=== PATIENT | male | born 1985 | race Caucasian/White ===

== ENCOUNTER 2018-03-20 12:28 | Outpatient (REF) | payer OTHER, SELFPAY ==
[2018-03-22 12:51] LABS: Acrosom Defect 24.5 %; Appearance Normal; Container Type 50 mL Conical; Double Forms 2.5 %; Germ Cells/mL 0.77 x10(6) (<4.00); Grade 3.5 (>=2.5); Head Size Abnormal 5.5 %; Motile/Ejaculate 21.6 x10(6) (>=9.0); Motile/mL 4.8 x10(6) (>=6.0); Motility 37 % (>=40); Semen Volume 4.5 mL (>=1.5); Sperm/mL 12.9 x10(6) (>=15.0); Strict Morph NL 0.5 % (>=4.0); Study Type Semen; WBC/mL 0.06 x10(6) (<1.00)
== END 2018-03-20 12:48 ==
LOC: LBN 12:28
PROVIDERS: PCP Family Medicine; Visit Provider Obstetrics & Gynecology Gynecology
DX: Z31.41 Encounter for fertility testing (principal); Z31.69 Encounter for other general counseling and advice on procreation
CPT/HCPCS: 89240; 89310

== ENCOUNTER 2018-05-24 18:26 | Emergency (ER) | payer OTHER, SELFPAY ==
[2018-05-24 18:33] VITALS: BP 154/89; PULSE 76; RESP 12; TEMP 36.8; O2SAT 99
[2018-05-24 18:50] VITALS: BP 154/89; PULSE 76; RESP 12; TEMP 36.8; O2SAT 99
--- NOTE | 2018-05-24 19:56 | ED.GENADUL_ITS ---
Discharge Plan Disposition Patient Disposition: HOME Condition: Stable Discharge Details Chief Complaint: Laceration Clinical Impression: Eyelid laceration Primary Care Provider: Amari Benton ED Provider: Zachary Duran Home Meds and New Rx's Prescriptions: No Action No Known Home Meds RF: 0 Discharge Instructions Instructions: Facial Laceration (ED) Additional Instructions: 1. Drink plenty of fluids. 2. Continue all medications as prescribed. 3. Acetaminophen 1000mg every 4 hours (up to 5 time a day) and/or ibuprofen 600mg every 6 hours as needed for fever or pain. 4. Bacitracin to wound edges twice a day. Return to the Emergency Department (ED) if your condition worsens, does not improve as expected, or for ANY other concerns. Specifically, return if you have new or uncontrolled pain, worsening fever, difficulty breathing, vomiting, or are unable to drink fluids. Medical Decision Making Presents for evaluation of single laceration sustained to his left eyelid. Had been inadvertently scratched by his dog's claw. Denies sensation of globe injury, visual change, or foreign body sensation. Has no other injury. Exam significant for a superficial 3 cm transverse laceration in the mid eyelid. Wound edges are well approximated despite mechanical efforts at opening up the wound. No active bleeding. Discussed low likelihood that wound repair would benefit cosmesis. Discharged home with a plan for bacitracin to the wound and outpatient follow-up as needed. Pt evaluated immediately prior to discharge with improved symptoms, normal vital signs, and tolerating PO. The patient feels appropriate for discharge home. Discussed clinical/diagnostic findings. Discharged with a clear plan for outpat ient follow up. Given usual and customary return instructions prior to discharge. HPI 32-year-old with an unremarkable past medical history presents with a new laceration to his left eyelid. And apparently scratched along the upper eyelid by his dog and sustained a laceration. Denies a sensation of significant globe injury with no change in vision, foreign body sensation, or any overt globe injury on inspection. Laceration had minimal bleeding which has been controlled with direct pressure. Denies other injury. Thinks that his tetanus is up-to-date. General Date/Time Provider Initiated Documentation: 05/24/18 18:45 . Related Data Home Medications Medication Instructions Recorded Confirmed Unknown [No Known Home Meds] 12/12/12 05/24/18 Allergies Allergy/AdvReac Type Severity Reaction Status Date / Time No Known Allergies Allergy Unverified 05/24/18 18:36 General Stated Complaint: Laceration CHRISTOPHER: 4 Review of Systems Review of Systems All systems reviewed & are unremarkable except as noted in HPI and below Eyes Denies blurry vision, Denies change in vision, Denies eye pain and Denies photophobia Comments: No foreign body sensation. Single transverse laceration on the upper eyelid with no active bleeding PFS Social History Smoking/Tobacco Use Status: Former Tobacco Use Drug use: Rarely Exam Narrative Exam Narrative: Nursing note and vital signs have been reviewed and noted. GENERAL: alert, active, no acute distress, well -hydrated, well-nourished HEENT: atraumatic/normocephalic, PERRLA, EOMI, conjunctiva clear, upper eyelid with a 3 cm transverse laceration into the dermis. No active bleeding. Laceration edges remain well approximated with mechanical effort at opening wound. external ears/canals normal, nasal mucosa normal NECK: supple, full range of motion CARDIOVASCULAR: nl pulses, no edema PULMONARY: nl effort, no audible wheezing or stridor ABDOMEN: non-distended EXTREMITY: normal muscle tone, all joints with FROM, no deformity NUERO: normal mentation, moving all extremities, normal stance and gait, PSYCH: alert and oriented SKIN: no new rashes or lesions Course Vital Signs Temperature 98.2 F 05/24/18 18:33 Pulse 76 05/24/18 18:33 Respiratory Rate 12 05/24/18 18:33 Blood Pressure 154/89 H 05/24/18 18:33 Pulse Oximetry 99 05/24/18 18:33 Temperature 98.2 F 05/24/18 18:50 Temperature Source Temporal Artery Scan 05/24/18 18:33 Pulse 76 05/24/18 18:50 Respiratory Rate 12 05/24/18 18:50 Respiratory Effort Non-Labored 05/24/18 18:34 Blood Pressure 154/89 H 05/24/18 18:50 Blood Pressure Position Sitting 05/24/18 18:33 Pulse Oximetry 99 05/24/18 18:50 Oxygen Delivery Method Room Air 05/24/18 18:33 Oxygen Flow Rate 0 05/24/18 18:33 Pain Level 0 05/24/18 18:50
== END 2018-05-24 18:57 | disposition home or self-care (01) ==
PROVIDERS: Emergency Provider Emergency Medicine; PCP Family Medicine
DX: S01.112A Laceration without foreign body of left eyelid and periocular area, initial encounter (principal); W54.8XXA Other contact with dog, initial encounter
CPT/HCPCS: 99282

== ENCOUNTER 2019-08-13 17:01 | Outpatient (REF) | payer OTHER, SELFPAY ==
[2019-08-13 16:24] LABS: Anion Gap 9.3 mmol/L (3-11); BUN 13 mg/dL (7-18); CO2 26.7 mmol/L (21.0-32.0); CREATININE 0.99 mg/dL (0.70-1.30); Calcium 8.8 mg/dL (8.5-10.1); Calculated LDL 113 mg/dL (<100); Chloride 106 mmol/L (98-107); Cholesterol 169 mg/dL (<200); Glucose 106 mg/dL (74-106); HDL Cholesterol 37 mg/dL (40-60); Potassium 4.4 mmol/L (3.5-5.1); Sodium 142 mmol/L (136-145); Triglyceride 95 mg/dL (<150)
== END 2019-08-13 17:21 ==
LOC: NCHCN 17:01
PROVIDERS: PCP Family Medicine; Visit Provider Physician Assistant
DX: Z00.00 Encounter for general adult medical examination without abnormal findings (principal); Z13.220 Encounter for screening for lipoid disorders; Z13.228 Encounter for screening for other metabolic disorders
CPT/HCPCS: 80048; 80061

== ENCOUNTER 2020-03-29 19:40 | Outpatient (REF) | payer OTHER, SELFPAY ==
[2020-04-01 14:35] LABS: COVID-19 RT-PCR UVMMC Result Negative (Negative)
== END 2020-03-29 20:00 ==
LOC: NCHCN 19:40
PROVIDERS: PCP Family Medicine; Visit Provider Nurse Practitioner Family
DX: J06.9 Acute upper respiratory infection, unspecified (principal)
CPT/HCPCS: U0003

== ENCOUNTER 2020-06-27 19:42 | Outpatient (REF) | payer OTHER, SELFPAY | END 2020-06-27 19:43 | disposition home or self-care (01) | LOC: NCHCN 19:42 | PROVIDERS: PCP Family Medicine; Visit Provider Physician Assistant Medical | DX: J02.9 Acute pharyngitis, unspecified (principal) | CPT/HCPCS: 87070 ==

== ENCOUNTER 2021-10-21 13:33 | Outpatient (REF) | payer BC, SELFPAY ==
[2021-10-22 10:37] LABS: Lyme Ab w Rflx to Lyme Confirm Negative (Negative)
[2021-10-23 15:22] LABS: COVID-19 RT-PCR UVMMC Result Negative (Negative)
[2021-10-23 20:24] LABS: Anaplasma phagocytophilum Negative (Negative); B. miyamotoi PCR Negative (Negative); Babesia divergens/MO-1 Negative (Negative); Babesia duncani Negative (Negative); Babesia microti Negative (Negative); Ehrlichia chaffeensis Negative (Negative); Ehrlichia ewingii/canis Negative (Negative); Ehrlichia muris eauclairensis Negative (Negative)
== END 2021-10-21 13:34 | disposition home or self-care (01) ==
LOC: LBN 13:33
PROVIDERS: PCP Family Medicine; Visit Provider Physician Assistant Medical
DX: Z20.822 Contact with and (suspected) exposure to COVID-19 (principal); J11.1 Influenza due to unidentified influenza virus with other respiratory manifestations; B97.89 Other viral agents as the cause of diseases classified elsewhere
CPT/HCPCS: 87798; U0003; 86618

== ENCOUNTER 2021-11-04 13:09 | Outpatient (REF) | payer BC, SELFPAY ==
--- NOTE | 2021-11-04 11:50 | SKI_PTH ---
PATIENT: Redd Viramontes LOC: [facility] U#:[id number] AGE/SX: 35/M ROOM: RE11/04/[address]: Spike Ayala : 1985 BED: DIS: 11/04/2021 SPEC #: [id number] RECD: 11/04/21 17:35 STATUS: SARINA REYocasta #: [id number] AVANI: 11/04/21 11:[address]: Spike Ayala DEPT: Surgical Specimen RECD BY: Joi Barksdale ENTERED: 11/04/21 17:35 SP TYPE: MOHAN GRUBBS DR: Amari Benton Tissues: 1 - SKIN BIOPSY(SHAVE/PUNCH) Procedures: SKIN LEVEL 4 SPECIAL STAIN 1 Comments: [id number]
--- OUTSIDE RECORDS SUMMARY | 2021-11-04 13:11 | XMS_ITS | Encounter Summary ---
:1985 Demographics Home Phone Preferred Language Unknown Marital Status Unknown Gnosticist Affiliation Unknown Race Unknown Ethnic Group Unknown Author Organization [facility] Address [address] [place] [address] Care Team Providers Name Role Phone Unavailable Primary Care Provider Unavailable Encounter Details Date Type Department Care Team Description 10/22/2021 Lab Requisition [facility] Outr Resulting Lab, Pathology & Laboratory Provider [facility] [address] [place] [address] Social History Tobacco Use Types Packs/Day Years Used Date Never Assessed Sex Assigned at Date Recorded Not on file documented as of this encounter Plan of Treatment Not on filedocumented as of this encounter Procedures Procedure Name Priority Date/Time Associated Diagnosis Comme nts COVID-19 TEST [facility] Today 10/21/2021 11:40 LAB PCR EDT COVID-19 TESTING Routine 10/21/2021 11:40 Results for this EDT procedure are i n the results section. documented in this encounter Results COVID-19 TEST [facility] LAB PCR (10/21/2021 11:40 EDT) Specimen Swab Performing Organization Address City/State/ZIP Code Phon e Number [facility] [address] [place] [address] SERVICES COVID-19 TESTING (10/21/2021 11:40 EDT) COVID-19 rt-PCR Negative Negative [facility] Result Comment: [facility] This test has not been FDA c leared or approved. This test has been authorized by FDA under an EUA for use by authorized laboratories. This test has been authorized only for detection of nucleic acid fro SERVICES m 2019-nCoV, not for any oth er viruses or pathogens. This test is only authorized for the duration of the declaration that circumstances exist justifying the authorization of emergency use of in vitro d iagnostic tests for detectio n and/or diagnosis of 2019-nCoV under section 564(b)(1) of Act, 21 U.S.C ?? 360bbb-3(b) (1), unless the authorization is terminated or revoked sooner. Negative results do not prec lude 2019-nCoV infection and should not be used as the sole basis for treatment or other patient management decisions. Negative results must be combined with clinical observa tions, patient history, and epidemiological informatio n. Testing was performed using the marybeth SARS-CoV-2 assay ([employer] on the Marybeth 6800 System Performing Lab [place] [address] [facility] Lab [facility] SERVICES Specimen Swab Performing Organization Address City/State/ZIP Code Phon e Number [facility] [address] [place] [phone] SERVICES documented in this encounter Visit Diagnoses Not on filedocumented in this encounter
--- OUTSIDE RECORDS SUMMARY | 2021-11-04 13:11 | XMS_ITS | Encounter Summary ---
:1985 Demographics Home Phone Preferred Language Unknown Marital Status Unknown Hinduism Affiliation Unknown Race Unknown Ethnic Group Unknown Author Organization [facility] Address [address] [place] [address] Care Team Providers Name Role Phone Unavailable Primary Care Provider Unavailable Encounter Details Date Type Department Care Team Description 10/21/2021 Lab Requisition [facility] Outr Resulting Lab, Pathology & Laboratory Provider [facility] [address] [place] [address] Social History Tobacco Use Types Packs/Day Years Used Date Never Assessed Sex Assigned at Date Recorded Not on file documented as of this encounter Plan of Treatment Not on filedocumented as of this encounter Procedures Procedure Name Priority Date/Time Associated Diagnosis Comme nts LYME AB Routine 10/21/2021 11:40 EDT Results for this procedure are i n the results section . documented in this encounter Results LYME AB (10/21/2021 11:40 EDT) Pathologist Sig nature Lyme Ab Negative Negative [facility] Specimen Blood - Venous blood (substance) Performing Organization Address City/State/ZIP Code Phon e Number [facility] [address] [place] [address] SERVICES documented in this encounter Visit Diagnoses Not on filedocumented in this encounter
--- OUTSIDE RECORDS SUMMARY | 2021-11-04 13:11 | XMS_ITS | Encounter Summary ---
:1985 Demographics Home Phone Preferred Language Unknown Marital Status Unknown Anglican Affiliation Unknown Race Unknown Ethnic Group Unknown Author Organization Address [address] [place] [address] Care Team Providers Name Role Phone Unavailable Primary Care Provider Unavailable Encounter Details Date Type Department Care Team Description 03/31/2020 Lab Requisition [facility] Outr Resulting Lab, Pathology & Laboratory Provider [facility] [address] [place] [address] Social History Tobacco Use Types Packs/Day Years Used Date Never Assessed Sex Assigned at Date Recorded Not on file documented as of this encounter Plan of Treatment Not on filedocumented as of this encounter Procedures Procedure Name Priority Date/Time Associated Diagnosis Comme nts COVID-19 TEST [facility] Today 03/29/2020 10:31 LAB PCR EST COVID-19 TESTING Routine 03/29/2020 10:31 Results for this EST procedure are i n the results section. documented in this encounter Results COVID-19 TEST [facility] LAB PCR (03/29/2020 10:31 EST) Specimen Swab - Entire nasopharynx (body structur e) Performing Organization Address City/State/ZIP Code Phon e Number [facility] [address] [place] [address] SERVICES COVID-19 TESTING (03/29/2020 10:31 EST) COVID-19 rt-PCR Negative Negative [facility] Result Comment: [facility] Negative results do not prec lude 2019-nCoV infection and should not be used as the sole basis for treatment or other patient management decisions. Negative results must be combined with clinical observa SERVICES tions, patient history, and epidemiological informatio n. This test was developed and its performance characteristics determined by [facility]. It has not been cleared or approved by the US Food and Drug Administration. FDA does not require this test to go through premarket FDA review. This t est is used for clinical purposes. It should not be regarded as investigational or for research. This laboratory is certified under the Clinical Laboratory Improvement Amendm ents (CLIA) as qualified to perform high complexity clinical laboratory testing. This test is based on the CD C COVID-19 Emergency Use Authorization (EUA) assay, with minor modification as defined by the FDA Performed on the [employer] 7 Flex RT-PCR System. Performing Lab [facility] Lab [facility] Specimen Swab Performing Organization Address City/State/ZIP Code Phon e Number [facility] [address] [place] [address] SERVICES documented in this encounter Visit Diagnoses Not on filedocumented in this encounter
--- OUTSIDE RECORDS SUMMARY | 2021-11-04 13:11 | XMS_ITS | Clinical Summary ---
:1985 Demographics Home Phone Preferred Language Unknown Marital Status Unknown Protestant Affiliation Unknown Race Unknown Ethnic Group Unknown Author Organization [facility] Address [address] [place] [address] Care Team Providers Name Role Phone Unavailable Primary Care Provider Unavailable Encounters Date Type Specialty Care Team Description 10/22/2021 Lab Requisition [facility] Outr Resulting Lab , Provider 10/21/2021 Lab Requisition Clinical Laboratory Outr Resulting Lab , Provider from Last 3 Months Social History Tobacco Use Types Packs/Day Years Used Date Never Assessed Sex Assigned at Date Recorded Not on file Plan of Treatment Not on file Procedures Procedure Name Priority Date/Time Associated Diagnosis Comme nts LYME AB Routine 10/21/2021 11:40 Results for this EDT procedure are i n the results section. COVID-19 TEST [facility] Today 10/21/2021 11:40 LAB PCR EDT COVID-19 TESTING Routine 10/21/2021 11:40 Results for this EDT procedure are i n the results section. from Last 3 Months Results COVID-19 TEST [facility] LAB PCR (10/21/2021 11:40 EDT) Specimen Swab Performing Organization Address City/State/ZIP Code Phon e Number [facility] [address] [place] [address] SERVICES COVID-19 TESTING (10/21/2021 11:40 EDT) COVID-19 rt-PCR Negative Negative [facility] Result Comment: [facility] This test has not been FDA [...] was performed using the marybeth SARS-CoV-2 assay ([employer] on the Marybeth 6800 System Performing Lab [address] [facility] Lab [facility] SERVICES Specimen Swab Performing Organization Address City/[facility]/ZIP Code Phon e Number [facility] [address] [place] [address] SERVICES LYME AB (10/21/2021 11:40 EDT) Pathologist Sig nature Lyme Ab Negative Negative [facility] Specimen Blood - Venous blood (substance) Performing Organization Address City/[facility] Phon e Number [facility] [address] [place] [address] SERVICES from Last 3 Months
[2021-11-04 18:09] LABS: Abs Immature Grans 0.37 10^3/uL (0.0-0.06); Absolute Basophil Count 0.06 10^3/uL (0.0-0.2); Absolute Eosinophil Count 0.03 10^3/uL (0.0-0.7); Absolute Monocyte Count 0.39 10^3/uL (0.1-0.8); Basophils % 0.5; Eosinophils % 0.3; HCT 45.4 % (40.0-50.0); HGB 14.9 g/dL (13.5-17.5); Immature Grans % 3.2; Lymphocytes % 14.7; MCH 28.8 pg (27.0-33.0); MCHC 32.8 % (32.0-36.0); MCV 88 fL (80-95); MPV 10.3 fL (8.0-11.0); Monocytes % 3.4; Neutrophils % 77.9; Platelet Count 224 10^3/uL (130-400); RBC 5.18 10^6/uL (4.36-5.78); RDW 13.1 % (11.8-14.1); RDW-SD 42.1 fL; WBC 11.55 10^3/uL (4.4-10.8)
[2021-11-04 18:18] LABS: ALT 38 U/L (16-63); AST 16 U/L (15-37); Albumin 4.1 g/dL (3.4-5.0); Alkaline Phosphatase 92 U/L (46-116); Anion Gap 7.1 mmol/L (3-11); BUN 13 mg/dL (7-18); Bilirubin, Total 0.2 mg/dL (0.2-1.0); C-Reactive Protein 0.06 mg/dL (0.0-0.3); CO2 26.9 mmol/L (21.0-32.0); CREATININE 1.1 mg/dL (0.70-1.30); Calcium 9.4 mg/dL (8.5-10.1); Chloride 100 mmol/L (98-107); Estimated GFR 89.22 (mL/min/1.73m2); Glucose 123 mg/dL (74-106); Potassium 4.9 mmol/L (3.5-5.1); Sodium 134 mmol/L (136-145); Total Protein 7.8 g/dL (6.4-8.2)
[2021-11-06 10:22] LABS: Syphilis Serology (RPR) Negative (Negative)
== END 2021-11-04 13:10 | disposition home or self-care (01) ==
LOC: NCHCN 13:09
PROVIDERS: PCP Family Medicine; Visit Provider Family Medicine
DX: L40.9 Psoriasis, unspecified (principal)
CPT/HCPCS: 80053; 85025; 86140; 86592; 88305; 88312

== ENCOUNTER 2024-03-17 12:56 | Emergency (ER) | payer BC, SELFPAY ==
[2024-03-17] VITALS (32 sets, daily range): BP systolic 116–140; BP diastolic 73–94; PULSE 76–155; RESP 11–30; TEMP 36.4; O2SAT 93–100
--- NOTE | 2024-03-17 12:45 | RT.EKG_ITS ---
APPROVED REPORT Exam: Resting ECG Reason for Exam: Tachy Patient Location: E HR:127 bpm ECG Measurements Heart Rate 127 AXIS MT 158 P 68 QRSd 82 QRS 62 QT 291 T 240 QTc 424 Conclusion Sinus tachycardia...rate> 99 Probable left atrial enlargement...P >50mS, <-0.10mV V1 Nonspecific repol abnormality, diffuse leads...ST dep, T flat/neg, ant/lat/inf Borderline ST elevation, anterior leads...ST >0.15mV in V1-V4
--- NOTE | 2024-03-17 12:55 | RT.EKG_ITS ---
APPROVED REPORT Exam: Resting ECG Reason for Exam: tachy Patient Location: E HR:79 bpm ECG Measurements Heart Rate 79 AXIS NJ 126 P 55 QRSd 84 QRS 61 QT 425 T 66 QTc 464 Conclusion Sinus rhythm...normal P axis, V-rate 60- 99 Atrial premature complexes...SV complexes w/ short R-R intvls Nonspecific ST depression...ST <-0.10mV, any 2 leads
[2024-03-17 13:45] LABS: Abs Immature Grans 0.06 10^3/uL (0.0-0.06); Absolute Basophil Count 0.05 10^3/uL (0.0-0.2); Absolute Eosinophil Count 0.14 10^3/uL (0.0-0.7); Absolute Lymphocyte Count 2.64 10^3/uL (1.2-3.4); Absolute Monocyte Count 0.59 10^3/uL (0.1-0.8); Absolute Neutrophil Count 5.49 10^3/uL (1.2-6.7); Basophils % 0.6 %; Eosinophils % 1.6 %; HCT 42.4 % (40.0-50.0); HGB 14.6 g/dL (13.5-17.5); Immature Grans % 0.7 %; Lymphocytes % 29.4 %; MCHC 34.4 % (32.0-36.0); MCV 84 fL (80-95); MPV 9.4 fL (8.0-11.0); Monocytes % 6.6 %; Neutrophils % 61.1 %; Platelet Count 227 10^3/uL (130-400); RBC 5.03 10^6/uL (4.36-5.78); RDW 12.4 % (11.8-14.1); RDW-SD 37.7 fL; WBC 8.97 10^3/uL (4.4-10.8)
--- NOTE | 2024-03-17 13:47 | ED.GENADUL_ITS ---
Discharge Plan Disposition Patient Disposition: Home Condition: Stable Discharge Details Clinical Impression: Rapid heart rate Primary Care Provider: Amari Benton ED Provider: Amari Jose Home Meds and New Rx's Prescriptions: Continued paroxetine HCl 10 mg tablet 10 mg PO DAILY Discharge Instructions Instructions: Hypomagnesemia Additional Instructions: Your blood work today showed that your magnesium is mildly low otherwise no significant findings. Follow-up with your primary care provider this week. He did have a brief episode of SVT which is not a life-threatening arrhythmia. If you notice that you are heart rate is elevated or you have chest pain or palpitations return to the emergency department for reevaluation. HPI General Mode of arrival: ambulatory . Date/Time Provider Initiated Documentation: 03/17/24 12:57 . Limitations to Documentation: no limitations . Information obtained by: patient . History of Present Illness 38 year old M pr esents to the emergency department with the chief complaint of palpitations, described as moderate, Patient started experiencing this hour(s) (1) and it has been constant. No relieving factors improve symptom(s), No exacerbating factors reported . Patient notes no other symptoms.. Patient did receive the following treatments prior to arrival, none Related Data Home Medications ?Medication ?Instructions ?Recorded ?Confirmed paroxetine HCl 10 mg tablet 10 mg PO DAILY 03/17/24 03/17/24 Allergies Allergy/AdvReac Type Severity Reaction Status Date / Time No Known Allergies Allergy Unverified 03/17/24 13:10 General Stated Complaint: Chest Pain CHRISTOPHER: 2 Review of Systems All systems reviewed & are unremarkable except as noted in HPI and below Constitutional Constitutional: Denies chills, Denies fever(s) and Denies weakness Eyes Eyes: Denies loss of vision ENT Ears, Nose, Mouth, and Throat: Denies change in voice Cardiovascular Cardiovascular: Denies chest pain, Denies dyspnea and Reports other (palpitations) Respiratory Respiratory: Denies cough and Denies dyspnea Gastrointestinal Gastrointestinal: Denies abdominal pain, Denies nausea and Denies vomiting Musculoskeletal Musculoskeletal: Denies joint swelling Neurologic Neurologic: Denies loss of vision and Denies weakness Psychiatric Psychiatric: Denies depression Exam Const General: no acute distress Orientation: alert HENMT Head: normal to inspection Ears: external ears normal General nose exam: external nose normal Mouth: moist mucous membranes Eyes General: appearance normal, both eyes and all related structures Neck Neck: normal visual inspection Resp Effort & Inspection: normal respiratory effort and able to speak in complete sentences Auscultation: clear to auscultation bilaterally Cardio Jugular venous pressure: no JVD Rate: regular rate Heart Sounds: no murmurs Skin General skin exam: no rashes or lesions noted Neuro General: patient alert and patient oriented x3 Extrem General: normal to inspection Psych Mental Status: mental status grossly normal Course Vital Signs Vital signs: Vital Signs Temperature 36.4 C L 03/17/24 13:00 Pulse 155 H 03/17/24 13:00 Respiratory Rate 18 03/17/24 13:00 Blood Pressure 135/80 03/17/24 13:00 Pulse Oximetry 100 03/17/24 13:00 Temperature 36.4 C L 03/17/24 13:00 Temperature Source Oral 03/17/24 13:00 Pulse 117 H 03/17/24 13:15 Pulse 111 H 03/17/24 13:20 Respiratory Rate 16 03/17/24 13:20 Respiratory Effort Normal, Non-Labored 03/17/24 13:19 Respiratory Depth Normal 03/17/24 13:19 Respiratory Pattern Normal 03/17/24 13:19 Blood Pressure 135/80 03/17/24 13:15 Blood Pressure Mean 95 03/17/24 13:15 Blood Pressure Position Supine 03/17/24 13:00 Pulse Oximetry 99 03/17/24 13:20 Oxygen Delivery Method Room Air 03/17/24 13:00 Oxygen Flow Rate 0 03/17/24 13:00 Pain Level 5 03/17/24 13:00 Comment headache/dry mouth/goose flesh and slight left shoulder pain. 03/17/24 13:00 Medical Decision Making 38-year-old male comes in with 1 to 2 hours of feeling like his heart rate is elevated. On arrival nursing noted his heart rate was in the 150s to 160s on my exam and is now in the low 100s in sinus. He denies any chest pain or chest pressure. No fevers. He is oriented x 4 on arrival. He does note that he took an extra dose of paroxetine last night, does not he feels anxious today. He could have been in SVT though I was unable to see this rhythm myself, also for like he is suffering from anxiety. Will check CBC, CMP and troponins and reassess. Will give him a dose of lorazepam as well. He has no evidence of DVT on exam, no hypoxia or pleuritic chest pain so doubt entities such as PE. No tearing back pain and equal peripheral pulses so doubt dissection Patient stable in sinus rhythm in the 90s. Delta troponins negative. Lab work unremarkable other than magnesium mildly low. He is stable for discharge advised follow-up with his PCP and return precautions given. Given the one-time occurrence of SVT do not feel medication at this time is indicated. Differential Diagnosis Differential Diagnosis: SVT, electrolyte abnormality, serotonin syndrome Quality:SDOH Health Related Social Needs: No Data to Display [facility] All Active Problems (Updated 03/17/24 @ 15:47 by Amari Jose MD) Rapid heart rate (Acute) Social History Smoking/Tobacco Use Status: Former Tobacco Use Smoking risk assessment performed?: Yes Alcohol Intake: current Alcohol Intake frequency: holidays/special occasions only Drug use: Rarely Substance use type: marijuana Details: home grown Housing: house Do you feel safe at home: Yes Do you feel safe in your relationship?: Yes
[2024-03-17 14:09] LABS: ALT 26 U/L (16-63); AST 19 U/L (15-37); Albumin 4.1 g/dL (3.4-5.0); Alkaline Phosphatase 80 U/L (46-116); Anion Gap 7.8 mmol/L (3-11); BUN 15 mg/dL (7-18); Bilirubin, Total 0.46 mg/dL (0.2-1.0); CO2 26.2 mmol/L (21.0-32.0); CREATININE 1.1 mg/dL (0.70-1.30); Calcium 8.8 mg/dL (8.5-10.1); Chloride 105 mmol/L (98-107); Estimated GFR 87.57 (mL/min/1.73m2); Glucose 178 mg/dL (74-106); Lipase 29 U/L (<78); Magnesium 1.5 mg/dL (1.8-2.4); Potassium 3.8 mmol/L (3.5-5.1); Sodium 139 mmol/L (136-145); Total Protein 7.5 g/dL (6.4-8.2)
[2024-03-17 14:14] LABS: Troponin I < 4 ng/L (<or=76)
--- OUTSIDE RECORDS SUMMARY | 2024-03-17 14:17 | XMS_ITS | Encounter Summary ---
Author Organization [facility] Address [address] [place] [address] Care Team Providers Care Permit Technician Name Role Phone Amari Benton MD Primary Care Provider [phone] Encounter Details Date Type Department Care Team (Late st Contact Info) Description 11/05/2021 Lab Requisition [facility] Pathology & Laboratory Medicine - [facility] [address] [place] [address] Outr Resulting Lab, Provider Social History Tobacco Use Types Packs/Day Years Used Date Smoking Tobacco: Never Assessed Interpersonal Safety Answer Date Record ed Physically Hurt Never 03/31/2020 Verbally Threaten Not on file 03/31/2020 Sex and Gender Information Value Date Recorded Sex Assigned at Not on file Legal Sex Male 10:08 EST Gender Identity Not on file Sexual Orientation Not on file documented as of this encounter Plan of Treatment Not on file documented as of this encounter Procedures Procedure Name Priority Date/Time Associated Diagnosis Comments SYPHILIS SEROLOGY Routine 11/04/2021 11: 40 EDT documented in this encounter Results * SYPHILIS SEROLOGY (11/04/2021 11:40 EDT) Syphilis Serology Negative Negative 11/06/2021 10:18 EDT [facility] Blood VENOUS BLOOD / Unknown 11/04/2021 11:40 EDT 11/05/2021 17:22 EDT us Provider Outr Resulting Lab IMMUNOLOGY AND SEROL OGY ORDERABLES Final Result [facility] [address] [place] [address] documented in this encounter Visit Diagnoses Not on filedocumented in this encounter Care Teams Permit Technician Relationship Specialty Start Date End Date Benton, Amari L, MD [address] [place] [id number] PCP - General 10/05/21 documented as of this encounter
--- OUTSIDE RECORDS SUMMARY | 2024-03-17 14:17 | XMS_ITS | Encounter Summary ---
Author Organization [facility] Address [address] [place] [address] Care Team Providers Care Senior Mainframe Developer Name Role Phone Amari Benton MD Primary Care Provider [phone] Encounter Details Date Type Department Care Team (Late st Contact Info) Description 03/31/2020 Lab Requisition [facility] Pathology & Laboratory Medicine - [facility] [address] [place] [address] Outr Resulting Lab, Provider Social History Tobacco [...] Procedure Name Priority Date/Time Associated Diagnosis Comments ZZCOVID-19 TEST [facility] PCR Today 03/29/2020 10:31 EST COVID-19 TESTING Routine 03/29/2020 10:3 1 EST documented in this encounter Results * COVID-19 TEST [facility] PCR (03/29/2020 10:31 EST) Swab ENTIRE NASOPHARYNX / Unknown 03/29/2020 10:31 EST 03/31/2020 16:40 EST us Provider Outr Resulting Lab MICROBIOLOGY - GENER AL ORDERABLES Final Result [facility] [address] [place] [address] * COVID-19 TESTING (03/29/2020 10:31 EST) COVID-19 rt-PCR Result Negative Negative 04/01/2020 14:30 EST [facility] Comment: Negative results do not preclude 2019-nCoV infection and should not be used as the sole basis for treatment or other patient management decisions. Negative results must be combined with clinical observations, patient history, and epidemiological information. This test was developed and its performance characteristics determined by [facility]. It has not been cleared or approved by the US Food and Drug Administration. FDA does not require this test to go through premarket FDA review. This test is used for clinical purposes. It should not be regarded as investigational or for research. This laboratory is certified under the Clinical Laboratory Improvement Amendments (CLIA) as qualified to perform high complexity clinical laboratory testing. This test is based on the [facility] COVID-19 Emergency Use Authorization (EUA) assay, with minor modification as defined by the FDA Performed on the [facility] Flex RT-PCR System. Performing Lab BHAVIN [facility] Lab 04/01/2020 14:30 EST [facility] Swab 03/29/2020 10:3 1 EST 03/31/2020 16:40 EST us Provider Outr Resulting Lab MICROBIOLOGY - GENER AL ORDERABLES Final Result [facility] [address] [place] [address] documented in this encounter Visit Diagnoses Not on filedocumented in this encounter Care Teams Senior Mainframe Developer Relationship Specialty Start Date End Date Amari Benton MD [address] [address] PCP - General 10/05/21 documented as of this encounter
--- OUTSIDE RECORDS SUMMARY | 2024-03-17 14:17 | XMS_ITS | Encounter Summary ---
Author Organization [facility] Address [facility] [place] [address] Care Team Providers Care Nylon Hot Wire Cutter Name Role Phone Krishna Ramos MD Primary Care Provider [phone] Encounter Details Date Type Department Care Team (Late st Contact Info) Description 05/15/2010 10:45 AM EST [place] [id number] Abbey Irby PA [facility] [place] [address] Discharge Disposition: Home Social History Tobacco Use Types Packs/Day Years Used Date Smoking Tobacco: Never Assessed Sex and Gender Information Value Date Recorded Sex Assigned at Not on file Gender Identity Not on file Sexual Orientation Not on file documented as of this encounter Plan of Treatment Not on file documented as of this encounter Procedures Procedure Name Priority Date/Time Associated Diagnosis Comments URINE CULTURE Routine 05/15/2010 1:55 PM EST documented in this encounter Results * URINE CULTURE (05/15/2010 1:55 PM EST) Urine Culture ? Patient Name: MARGARET VIRAMONTES ? Ordered By: ABBEY IRBY ? MR#: [id number] ?LOC: ??5B ? /Sex: ?? 5 (24 years), ? Male ? PROCEDURE: Urine Culture ?SOURCE: T CC ? COLLECTED: 05/15/2010 13:55 ? STARTED: 05/15/2010 14:14 ? FINAL REPORT ? Final Report ? Verified: 07:35 ? No growth (Less than 1,000 cfu/ml). ? ____ CERNER MILLENNIUM Urine specimen obtained by clean catch procedure (specimen) 05/15/2010 1:55 PM EST 05/15/2010 2:04 PM EST Abbey BENNETT MICROBIOLOGY - GEN ERAL ORDERABLES SHONDA SAMENNIUM documented in this encounter Visit Diagnoses Not on filedocumented in this encounter Care Teams Nylon Hot Wire Cutter Relationship Specialty Start Date End Date Krishna Ramos MD [facility] [address] [place] [address] PCP - General 01/27/10 07/10/15 documented as of this encounter
--- OUTSIDE RECORDS SUMMARY | 2024-03-17 14:17 | XMS_ITS | Encounter Summary ---
Author Organization [facility] Address [address] [place] [address] Care Team Providers Care Lactation Consultant Name Role Phone Amari Benton MD Primary Care Provider [phone] Encounter Details Date Type Department Care Team (Late st Contact Info) Description 10/22/2021 Lab Requisition [facility] Pathology & Laboratory Medicine - [facility] [address] [place] [address] Outr Resulting Lab, Provider Social History Tobacco [...] Priority Date/Time Associated Diagnosis Comments ZZCOVID-19 TEST [facility] PCR Today 10/21/2021 11:40 EDT COVID-19 TESTING Routine 10/21/2021 11:4 0 EDT documented in this encounter Results * COVID-19 TEST [facility] PCR (10/21/2021 11:40 EDT) Swab 10/21/2021 11:4 0 EDT 10/22/2021 17:10 EDT us Provider Outr Resulting Lab MICROBIOLOGY - GENER AL ORDERABLES Final Result [facility] [address] [place] [address] * COVID-19 TESTING (10/21/2021 11:40 EDT) COVID-19 rt-PCR Result Negative Negative 10/23/2021 15:17 EDT [facility] Comment: This test has not been FDA cleared or approved. This test has been authorized by FDA under an EUA for use by authorized laboratories. This test has been authorized only for detection of nucleic acid from 2019-nCoV, not for any other viruses or pathogens. This test is only authorized for the duration of the declaration that circumstances exist justifying the authorization of emergency use of in vitro diagnostic tests for detection and/or diagnosis of 2019-nCoV under section 564(b)(1) of Act, 21 U.S.C ?? 360bbb-3(b) (1), unless the authorization is terminated or revoked sooner. Negative results do not preclude 2019-nCoV infection and should not be used as the sole basis for treatment or other patient management decisions. Negative results must be combined with clinical observations, patient history, and epidemiological information. Testing was performed using the carter SARS-CoV-2 assay ([employer] on the Carter 6800 System Performing Lab [facility] [address] [facility] Lab 10/23/2021 15:17 EDT [facility] Swab 10/21/2021 11:4 0 EDT 10/22/2021 17:10 EDT us Provider Outr Resulting Lab MICROBIOLOGY - GENER AL ORDERABLES Final Result [facility] [address] [place] [address] documented in this encounter Visit Diagnoses Not on filedocumented in this encounter Care Teams Lactation Consultant Relationship Specialty Start Date End Date Amari Benton MD [address],[facility] [place] [address] PCP - General 10/05/21 documented as of this encounter
--- OUTSIDE RECORDS SUMMARY | 2024-03-17 14:17 | XMS_ITS | Encounter Summary ---
Author Organization [facility] Address [facility] [place] [address] Care Team Providers Care Probate Lawyer Name Role Phone Krishna Ramos MD Primary Care Provider [phone] Encounter Details Date Type Department Care Team (Late st Contact Info) Description 02/06/2010 10:00 AM EST [place] [address] Maryellen Cedeno MD [facility] [place] [address] Discharge Disposition: Home Social History Tobacco Use Types Packs/Day Years Used Date Smoking Tobacco: Never Assessed Sex and Gender Information Value Date Recorded Sex Assigned at Not on file Gender Identity Not on file Sexual Orientation Not on file documented as of this encounter Plan of Treatment Not on file documented as of this encounter Visit Diagnoses Not on filedocumented in this encounter Care Teams Probate Lawyer Relationship Specialty Start Date End Date Krishna Ramos MD [facility] [place] [address] PCP - General 01/27/10 07/10/15 documented as of this encounter
--- OUTSIDE RECORDS SUMMARY | 2024-03-17 14:17 | XMS_ITS | Encounter Summary ---
Author Organization [facility] Address [facility] [place] [address] Care Team Providers Care Automotive Service Consultant Name Role Phone Krishna Ramos MD Primary Care Provider [phone] Encounter Details Date Type Department Care Team (Latest Contact Info) Description 08/23/2012 2:59 PM EDT - 08/23/2012 8:23 PM EDT Hospital [place] [address] Zachary Bella MD Discharge Disposition: Home Social History Tobacco Use Types Packs/Day Years Used Date Smoking Tobacco: Some Days Alcohol Use Standard Drinks/Week Comments Yes 7 (1 standard drink = 0.6 oz pur e alcohol) Sex and Gender Information Value Date Recorded Sex Assigned at Not on file Gender Identity Not on file Sexual Orientation Not on file documented as of this encounter Last Filed Vital Signs Vital Sign Reading Time Taken Comments Blood Pressure 105/70 08/23/2012 4:33 PM EDT Pulse 71 08/23/2012 4:33 PM EDT Temperature 36.6 ??C (97.9 ??F) 08/23/2012 3:16 PM ED T Respiratory Rate 16 08/23/2012 4:33 PM EDT Oxygen Saturation 97% 08/23/2012 4:33 PM EDT Inhaled Oxygen Concentration - - Weight - - Height - - Body Mass Index - - documented in this encounter Discharge Instructions * Discharge Instructions* Hung [place] RN - 08/23/2012 4:34 PM EDT You may have received medication before and/or during your procedure which effects judgement and reaction time. Do not drive, operate machinery, drink alcoholic beverages, or make important decisions for 24 hours. Be careful on stairs, as you may be unsteady on your feet. You may eat a regular diet as tolerated. Do not smoke if you are alone. IV site -- slight redness or tenderness is normal. You may use a warm compress. If tenderness and redness increases or foul drainage occurs please contact your M.D. Please call [phone] before 5 pm with problems, questions or concerns. After 5pm call [phone] and ask to speak with the chainstitch elastic attacher international bank manager. Discharge instructions reviewed with patient who expresses understanding. * Patient Instructions* Zachary Bella MD - 08/23/2012 4:18 PM EDT Please see Recommendations in the Provation procedure report which is documented in the procedural note in E-DH. * Attachments The following attachments cannot be sent through Care Everywhere. * UPPER GI ENDOSCOPY: WHAT TO EXPECT AT HOME (KYRGYZ) documented in this encounter Miscellaneous Notes * Miscellaneous - Provider, Scanning - 08/23/2012 10:47 PM EDT * Miscellaneous - Provider, Scanning - 08/23/2012 4:03 PM EDT documented in this encounter Plan of Treatment Not on file documented as of this encounter Procedures Procedure Name Priority Date/Time Associated Diagnosis Comments EGD, UPPER GI ENDOSCOPY (WRVU 2.09) 08/23/2012 4:07 PM EDT hematemesis UPPER GI ENDOSCOPY Routine 08/23/2012 3: 40 PM EDT documented in this encounter Results * UPPER GI ENDOSCOPY (08/23/2012 3:40 PM EDT) [facility] UPPER GI ENDOSCOPY [facility] Patient Name: Redd Viramontes ? Procedure Date: 08/23/2012 3:40 PM ? Date of : 1985 ? Age: 26 ? Order #: [id number] ? Procedure: ? Upper GI endoscopy Indications: ? Hematemesis Providers: ? Zachary Bella MD, Pema Jones, ? RN, Zoe Lyons, [employer] Farmworker Referring : ?Krishna Ramos MD Medicines: ? Midazolam 4 mg IV, Fentanyl 150 ? micrograms IV, Benzocaine spray Complications: ? No immediate complications. Procedure: ? Pre-Anesthesia Assessment: ? - ASA Grade Assessment: I - A normal, ? healthy patient. ? - Mental Status Examination: alert ? and oriented. ? - Airway Examination: normal ? oropharyngeal airway and neck ? mobility. ? - Respiratory Examination: clear to ? auscultation. ? - CV Examination: normal. ? The procedure, indications, benefits, ? risks and alternatives were explained ? to the patient. Specifically ? discussed were potential ? complications including, but not ? limited to, bleeding, perforation, ? infection, missing a cancer, and ? adverse medication reactions. The ? Endoscope was introduced through the ? mouth, and advanced to the second ? part of duodenum. The patient ? tolerated the procedure well. The ? upper GI endoscopy was accomplished ? without difficulty. The patient ? tolerated the procedure well. ? Findings: ? The esophagus was normal. ? The stomach was normal. ? The examined duodenum was normal. ? Impression: ?- Normal esophagus. ? - Normal stomach. ? - Normal examined duodenum. Recommendation: ?- Return to primary care physician. ? ___ Zachary Bella MD 08/23/2012 4:23 PM This report has been signed electronically. Number of Addenda: 0 Note Initiated On: 08/23/2012 3:40 PM PROVATION 08/23/2012 3:40 PM EDT Krishna Ramos MD GENERAL SURGICAL ORD ERABLES PROVATION documented in this encounter Visit Diagnoses Not on filedocumented in this encounter Active and Recently Administered Medications Times are shown in EDT. PRN Medication Order 08/21/2012 08/22/2012 08/23/2012 fentaNYL 50mcg/mL injection (CANCELED) ONCE PRN, Starting on Tue08/23/12 at 1609, Until Tue08/23/12 at 2223, Pain, Intra-Operative (Intra-Procedure), Routine 1609 (Given - Provid er: Pema Jones RN)1612 (Given - Provider: Pema Jones RN) midazolam (VERSED) injection (CANCELED) ONCE PRN, Starting on Tue08/23/12 at 1609, Until Tue08/23/12 at 2223, Sleep, Intra-Operative (Intra-Procedure), Routine 1609 (Given - Provid er: Pema Jones RN)1612 (Given - Provider: Pema Jones, JOHAN)1615 (Given - Provider: Pema Jones, RN) documented in this encounter Care Teams Automotive Service Consultant Relationship Specialty Start Date End Date Krishna Ramso MD [facility] [address] [place] [address] PCP - General 01/27/10 07/10/15 documented as of this encounter
--- OUTSIDE RECORDS SUMMARY | 2024-03-17 14:17 | XMS_ITS | Encounter Summary ---
Author Organization [facility] Address [address] [place] [address] Care Team Providers Care Office Services Representative Name Role Phone Amari Benton MD Primary Care Provider [phone] Encounter Details Date Type Department Care Team (Late st Contact Info) Description 10/21/[address] [facility] Pathology & Laboratory Medicine - [facility] [address] [place] [address] Outr Resulting Lab, Provider Social History Tobacco [...] Procedure Name Priority Date/Time Associated Diagnosis Comments LYME AB Routine 10/21/2021 11:40 EDT documented in this encounter Results * LYME AB (10/21/2021 11:40 EDT) Lyme Ab Negative Negative 10/22/2021 10:32 EDT [facility] Blood VENOUS BLOOD / Unknown 10/21/2021 11:40 EDT 10/21/2021 21:20 EDT us Provider Outr Resulting Lab IMMUNOLOGY AND SEROL OGY ORDERABLES Final Result [facility] [address] [place] [address] documented in this encounter Visit Diagnoses Not on filedocumented in this encounter Care Teams Office Services Representative Relationship Specialty Start Date End Date Benton, Amari L, MD [address] [place] [address] PCP - General 10/05/21 documented as of this encounter
--- OUTSIDE RECORDS SUMMARY | 2024-03-17 14:17 | XMS_ITS | Encounter Summary ---
Author Organization [facility] Address [facility] [place] [address] Care Team Providers Care Firm Administrator Name Role Phone Krishna Ramos MD Primary Care Provider [phone] Encounter Details Date Type Department Care Team (Late st Contact Info) Description 02/06/2010 10:00 AM EST Office [place] [address] Ketty Schulz PA [facility] [place] [address] Social History Tobacco Use Types Packs/Day Years Used Date Smoking Tobacco: Never Assessed Sex and Gender Information Value Date Recorded Sex Assigned at Not on file Gender Identity Not on file Sexual Orientation Not on file documented as of this encounter Plan of Treatment Not on file documented as of this encounter Visit Diagnoses Not on filedocumented in this encounter Care Teams Firm Administrator Relationship Specialty Start Date End Date Krishna Ramos MD [facility] [address] [place] [address] [place] [address] PCP - General 01/27/10 07/10/15 documented as of this encounter
--- OUTSIDE RECORDS SUMMARY | 2024-03-17 14:17 | XMS_ITS | Encounter Summary ---
Author Organization [facility] [place] [address] Care Team Providers Care Health Unit Coordinator Name Role Phone Too Bella Primary Care Provider [phone] Reason for Referral * Consultation (Routine) - Closed Specialty Diagnoses / Procedures Referred By Contbutch t Referred To Contact Dermatology Diagnoses Psoriasis Too Bella PA [address] [place] [address] [facility] Dermatology [address] [place] [address] Referral ID Status Reason Start Date Expiration Date V isits Requested Visits Authorized [id number] Closed Consult, Test & Treat PCP Updated and/or Approved 11/18/2021 11/18/2022 6 6 Encounter Details Date Type Department Care Team (Late st Contact Info) Description 11/18/2021 Transcribe Orders eDH Incoming Referrals [phone] Too Bella PA [address] [place] [address] Psoriasis Social History Tobacco Use Types Packs/Day Years Used Date Smoking Tobacco: Some Days Alcohol Use Standard Drinks/Week Comments Yes 7 (1 standard drink = 0.6 oz pur e alcohol) Sex and Gender Information Value Date Recorded Sex Assigned at Not on file Gender Identity Not on file Sexual Orientation Not on file documented as of this encounter Plan of Treatment Scheduled Referrals Name Type Priority Associated Diagnoses Order Schedule Referral to Dermatology Outpatient Referral Routine Psoriasis Ordered: 11/18/2021 documented as of this encounter Visit Diagnoses Diagnosis Psoriasis Other psoriasis documented in this encounter Care Teams Health Unit Coordinator Relationship Specialty Start Date End Date Too Bella PA [address] [place] [address] PCP - General Internal Medicine 11/18/21 documented as of this encounter
--- OUTSIDE RECORDS SUMMARY | 2024-03-17 14:17 | XMS_ITS | Encounter Summary ---
[place] [address] Care Team Providers Care Executive Admin Name Role Phone Too Bella Primary Care Provider [phone] Encounter Details Date Type Department Care Team (Latest Contact Info) Description 01/29/2022 Travel Social History Tobacco Use Types Packs/Day Years [...] on filedocumented in this encounter Care Teams Executive Admin Relationship Specialty Start Date End Date Too Bella PA [address] [place] [address] PCP - General Internal Medicine 11/18/21 documented as of this encounter
--- OUTSIDE RECORDS SUMMARY | 2024-03-17 14:17 | XMS_ITS | Referral Summary ---
Author Organization [facility] Address [address] [place] [address] Care Team Providers Care Set Up Machinist Name Role Phone Amari Benton MD Primary Care Provider [phone] Social History Tobacco Use Types Packs/Day Years Used Date Smoking Tobacco: Never Assessed Interpersonal Safety Answer Date Record ed Physically Hurt Never 03/31/2020 Verbally Threaten Not on file 03/31/2020 Sex and Gender Information Value Date Recorded Sex Assigned at Not on file Legal Sex Male 10:08 EST Gender Identity Not on file Sexual Orientation Not on file Plan of Treatment Not on file Insurance [facility] Care Teams Set Up Machinist Relationship Specialty Start Date End Date Amari Benton MD [address],[facility] [place] [address] PCP - General 10/05/21
--- OUTSIDE RECORDS SUMMARY | 2024-03-17 14:17 | XMS_ITS | Clinical Summary ---
Author Organization [facility] Address [address] [place] [address] Care Team Providers Care Linoleum Installer Name Role Phone Amari Benton MD Primary Care Provider [phone] Social History Tobacco Use Types Packs/Day Years Used Date Smoking Tobacco: Never Assessed Interpersonal Safety Answer Date Record ed Physically Hurt Never 03/31/2020 Verbally Threaten Not on file 03/31/2020 Sex and Gender Information Value Date Recorded Sex Assigned at Not on file Legal Sex Male 10:08 EST Gender Identity Not on file Sexual Orientation Not on file Plan of Treatment Health Maintenance Due Date Last Done Comments Hepatitis C Screen 1985 Hepatitis B Vaccine (1 of 3 - 19+ 3-dose series) 12/25 COVID-19 Vaccine ( season) 2023 Insurance [facility] Care Teams Linoleum Installer Relationship Specialty Start Date End Date Amari Benton MD [address],[facility] [place] [address] PCP - General 10/05/21
--- OUTSIDE RECORDS SUMMARY | 2024-03-17 14:17 | XMS_ITS | Encounter Summary ---
Author Organization [facility] Address [address] [place] [address] Care Team Providers Care Director Of Land Acquisition Name Role Phone Amari Benton MD Primary Care Provider [phone] Encounter Details Date Type Department Care Team (Late st Contact Info) Description 11/04/2021 Lab Requisition [facility] Pathology & Laboratory Medicine - [facility] [address] [place] [address] Spike Ayala MD [address] [place], [place] [address] Encounter for other general examination Social History Tobacco Use Types Packs/Day Years [...] Procedure Name Priority Date/Time Associated Diagnosis Comments SURGICAL PATHOLOGY Today 11/04/2021 11 :50 EDT Encounter for other general examination documented in this encounter Results * SURGICAL PATHOLOGY (11/04/2021 11:50 EDT) Note to Patient The following pathology results have been interpreted by your pathologist and may be available to you before your health provider has had the opportunity to review them. Please allow time for your provider to receive these results and explore management options, if applicable. 11/06/2021 11:[address] [facility] Final Diagnosis A. SKIN OF FOREARM, LEFT, PUNCH BIOPSY: - Psoriasiform dermatitis. See comment. 11/06/2021 11:31 [facility] Diagnosis Comment The biopsy consists of psoriasiform dermatitis with many features of psoriasis. On some of the deeper sections, there is concomitant vascular inflammation with features of associated vasculitis. Although dermatophytosis can have similar psoriasiform changes, no fungal organisms are identified with PAS stain. 11/06/2021 11:31 [facility] Attestation By the signature below, the attending physician certifies that they have 1) personally conducted a gross and/or microscopic examination of the described specimen(s), and/or personally interpreted the results of laboratory testing of the described specimen(s), and 2) personally rendered or confirmed the above diagnosis. 11/06/2021 11:31 [facility] at [address]1 Microscopic Description Sections consist of a punch biopsy of skin to the deep reticular dermis. The stratum corneum has discrete foci of mounded parakeratosis, some which have entrapped neutrophils. The epidermis is mildly acanthotic. There is exocytosis of inflammatory cells with formation of occasional superficial neutrophilic microabscesses. The granular layer is generally preserved but lost in the areas of parakeratosis. Within the dermis, there is a patchy superficial perivascular inflammatory infiltrate. The infiltrate is composed primarily of lymphomononuclear cells. On some of the deeper sections, neutrophils are evident within the vessel [place] and there is mild fibrinoid mural necrosis with erythrocyte extravasation. Dilated, tortuous vessels are noted within the papillae. No fungal organisms identified on sections prepared with PAS-diastase stain. 11/06/2021 11:31 [facility] Clinical History Rash and other nonspecific skin eruption, progressed on oral prednisone; clinical diagnosis code: R21 11/06/2021 11:31 [facility] Gross Description A. Received in formalin labelled with proper patient identification (initials U, K) and L forearm is a punch biopsy of avalos scaly skin (0.4 cm in diameter and 0.2 cm in thickness). Submitted intact in A1. ZAC MIRELES 11/05/2021 8:26 11/06/2021 11:31 [facility] Performing Lab [facility] 11/06/2021 11:31 [facility] Scanned Images 11/06/2021 11:[address] [facility] Tissue TISSUE SPECIMEN FROM SKIN / Unknown 11/04/2021 11:50 EDT 11/04/2021 23:06 EDT us Spike Ayala MD PATHOLOGY ORDERABLES Final Resul t [facility] [address] [place] [address] documented in this encounter Visit Diagnoses Diagnosis Encounter for other general examination documented in this encounter Care Teams Director Of Land Acquisition Relationship Specialty Start Date End Date Amari Benton MD [address] [phone] PCP - General 10/05/21 documented as of this encounter
--- OUTSIDE RECORDS SUMMARY | 2024-03-17 14:17 | XMS_ITS | Encounter Summary ---
[facility] [place] [address] Care Team Providers Care Process Controls Technician Name Role Phone Krishna Ramos MD Primary Care Provider [phone] Encounter Details Date Type Department Care Team (Late st Contact Info) Description 08/23/2012 4:00 PM EDT - 08/23/2012 4:30 PM EDT [place] [address] Zachary Bella MD EGD, UPPER GI ENDOSCOPY (WRVU 2.09) Social History Tobacco Use Types Packs/Day Years [...] occurs please contact your M.D. Please call [phone] before 5 pm with problems, questions or concerns. After 5pm call [phone] and ask to speak with the geological drafter pest control supervisor. Discharge instructions reviewed with patient who expresses understanding. * Patient Instructions* Zachary Bella MD - 08/23/2012 4:18 PM EDT Please see Recommendations in the Provation procedure report which is documented in the procedural note in E-[facility]. * Attachments The following attachments cannot be sent through Care Everywhere. * UPPER GI ENDOSCOPY: WHAT TO EXPECT AT HOME (INDONESIAN) documented in this encounter Miscellaneous Notes * [...] UPPER GI ENDOSCOPY (08/23/2012 3:40 PM EDT) Pathologist [facility] UPPER GI ENDOSCOPY [facility] Patient Name: Redd Viramontes ? Procedure Date: 08/23/2012 3:40 PM ? Date of : 1985 ? Age: 26 ? Order #: [id number] ? Procedure: ? Upper GI endoscopy Indications: ? Hematemesis Providers: ? Zachary Bella MD, Pema Jones, ? RN, Zoe Lyons, Drill Press Set Up Operator Referring MD: ?Krishna Ramos MD Medicines: ? Midazolam 4 [...] Diagnoses Not on filedocumented in this encounter Administered Medications Inactive Administered Medications - up to 3 most recent administrations Medication Order MAR Action Action Date Dose Rate Site fentaNYL 50mcg/mL injection ONCE PRN, Starting on Tue08/23/12 at 1609, Until Tue08/23/12 at 2223, Pain, Intra-Operative (Intra-Procedure), Routine Given 08/23/2012 4:12 PM EDT 50 mcg Right Arm Given 08/23/2012 4:09 PM EDT 100 mcg Ri ght Arm midazolam (VERSED) injection ONCE PRN, Starting on Tue08/23/12 at 1609, Until Tue08/23/12 at 2223, Sleep, Intra-Operative (Intra-Procedure), Routine Given 08/23/2012 4:15 PM EDT 1 mg Right Arm Given 08/23/2012 4:12 PM EDT 1 mg Ri ght Arm Given 08/23/2012 4:09 PM EDT 2 mg Ri ght Arm documented in this encounter Active and Recently Administered Medications Times are shown in EDT. PRN Medication Order 08/21/2012 08/22/2012 08/23/2012 fentaNYL 50mcg/mL injection (CANCELED) ONCE PRN, Starting on Tue08/23/12 at 1609, Until Tue08/23/12 at 2223, Pain, Intra-Operative (Intra-Procedure), Routine 1609 (Given - Provid er: Pema L Little, RN)1612 (Given - Provider: Pema Jones RN) midazolam (VERSED) injection (CANCELED) ONCE PRN, Starting on Tue08/23/12 at 1609, Until Tue08/23/12 at 2223, Sleep, Intra-Operative (Intra-Procedure), Routine 1609 (Given - Provid er: Pema Jones RN)1612 (Given - Provider: Pema Jones RN)1615 (Given - Provider: Pema Jones RN) documented in this encounter Care Teams Process Controls Technician Relationship Specialty Start Date End Date Krishna Ramos MD [facility] [address] [place] [address] PCP - General 01/27/10 07/10/15 documented as of this encounter
--- OUTSIDE RECORDS SUMMARY | 2024-03-17 14:17 | XMS_ITS | Clinical Summary ---
Author Organization [facility] Address [facility] [place] [address] Care Team Providers Care Analytics Developer Name Role Phone Too Bella Primary Care Provider [phone] Allergies No known active allergies Medications Medication Sig Dispensed Refills Start Date End Date Status triamcinolone (Kenalog) 0.1 % CreamIndications:Derm atitis Apply topically to the effected areas of the body twice daily for 3 weeks. Take 1 week off and repeat as needed. 453.6 g 1 01/29/2022 Active Immunizations Name Administration Dates Next Due Td Adult (not absorbed) 01/25/2006 Social History Tobacco Use Types Packs/Day Years Used Date Smoking Tobacco: Some Days Alcohol Use Standard Drinks/Week Comments Yes 7 (1 standard drink = 0.6 oz pur e alcohol) Sex and Gender Information Value Date Recorded Sex Assigned at Not on file Gender Identity Not on file Sexual Orientation Not on file Last Filed Vital Signs Vital Sign Reading Time Taken Comments Blood Pressure 105/70 08/23/2012 4:33 PM EDT Pulse 71 08/23/2012 4:33 PM EDT Temperature 36.6 ??C (97.9 ??F) 08/23/2012 3:16 PM ED T Respiratory Rate 16 08/23/2012 4:33 PM EDT Oxygen Saturation 97% 08/23/2012 4:33 PM EDT Inhaled Oxygen Concentration - - Weight - - Height - - Body Mass Index - - Plan of Treatment Health Maintenance Due Date Last Done Comments HIV screen 2002 Hepatitis C Screening 2002 Lipid Screening 2002 Hepatitis B vaccine (0-59 yrs) (1) 12/26/2003 Pneumococcal Vaccine: At-Risk 5-64yrs (1 of 2 - PCV) 1 Tetanus/Diphtheria/Pertussis Vaccines (1 - Tdap) 01/2601/25/2006 Covid-19 Vaccine (1 - 2023- season) 2023 Influenza (Flu) vaccine (1 o f 1 - Influenza standard series) 11/06/2023 Care Teams Analytics Developer Relationship Specialty Start Date End Date Too Bella PA [address] [facility] [address] [place] [address] PCP - General Internal Medicine 11/18/21
--- OUTSIDE RECORDS SUMMARY | 2024-03-17 14:17 | XMS_ITS | Encounter Summary ---
Author Organization [facility] Address [facility] [place] [address] Care Team Providers Care Casting Finisher Name Role Phone Too Bella Primary Care Provider [phone] Reason for Visit * Consultation (Routine) - Closed Specialty Diagnoses / Procedures Referred By Maico t Referred To Contact Dermatology Diagnoses Psoriasis Too Bella PA [facility] [address] [facility] [address] [place] [address] [facility] Dermatology [address] [place] [address] Referral ID Status Reason Start Date Expiration Date V isits Requested Visits Authorized [id number] Closed Consult, Test & Treat PCP Updated and/or Approved 11/18/2021 11/18/2022 6 6 Encounter Details Date Type Department Care Team (Late Contact Info) Description 01/29/2022 8:40 AM EST Office Visit Dermatology at [facility] [address] [place] [address] Carla Montoya MD Dermatitis Social History Tobacco Use Types Packs/Day Years Used Date Smoking Tobacco: Some Days Alcohol Use Standard Drinks/Week Comments Yes 7 (1 standard drink = 0.6 oz pur e alcohol) Sex and Gender Information Value Date Recorded Sex Assigned at Not on file Gender Identity Not on file Sexual Orientation Not on file documented as of this encounter Progress Notes * Carla Montoya MD - 01/29/2022 8:40 AM EST Images from the original note were not included. DEPARTMENT OF DERMATOLOGY Medical Dermatology Clinic Provider: Carla Montoya MD Patient's preferred name Redd Preferred contact method for results [x]Cellphone []myD-H []Letter Detailed phone message OK? Y Are there any other people with whom we may discuss your care? Past Medical History Date, location, treatment Melanoma N Dysplastic nevi N SCC N BCC N AKs N Other relevant past medical history Eczema in the wintertime Depression (on low dose of paroxetine for years) Family History Negative for psoriasis or other AI disorder Melanoma N NMSC N Other relevant family history Colon Cancer Social History Occupation: [employer] Hobbies: Other: PRE-PROCEDURE SCREENING Details Allergy to lidocaine, epinephrine, Dermabond, chlorhexidine, or adhesives Bleeding disorder or blood thinners Pacemaker, defibrillator, deep brain stimulator, cochlear implant History of Present Illness: Redd Viramontes is a 36 y.o. Patient is new and referred to the clinic for psoriasis -Patient states his psoriasis started in late october or early November. He and his PCP believe it started out as ACD on his wrists after he was doing yard work in October. It then spread to his entire body, except the face and groin. He was given prednisone taper (40, 30, 20, 10 x3 days each), which helped but rash started worsening as he was tapering down. Lab work up was then done and WNL (TBD panel, CBC CMP CRP and RPR). 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 Started triamcinolone cream which helped a bit but he had so many plaques that he could only pick the primary spots that were bothering him. He states it is everywhere. The worst spots would be the hip, feet and arms. Reports no nail changes, joint pains. No rash on the face, groin, palms or soles. Has had ACD in the past as well and a h/o sensitive skin and uses sensitive skin care (fragrance-free). Hereports no new meds or med changes (including OTC and supplements) prior to onset of rash, but doesendorse a tick bite several months prior and a cold a few weeks prior. Medications: Reviewed in eD-H Allergies: Reviewed in eD-H Skin Examination: Focused skin examination of the arms, legs, feet was normal with the exception of the findings below. Assessment/Plan #. Dermatitis - Numerous clusters of dull pink papules on the lower trunk and flanks, medial arms, lower extremities, dorsal feet and ankles. No nail changes. DDx: Resolving guttate psoriasis vs ACD with ID reaction vs other hypersensitivity reaction -Previous biopsy done showed psoriasiform dermatitis on 11/04/2021 (in scanned docs) -Favor resolving psoriasiform dermatitis (started October 2021) -past tx: prednisone taper, short course of triam cream -overall improving per pt -discussed low utility of repeat bx due to all lesions being weeks to months old with some secondary changes. -discussed treating with longer and higher course of oral steroids vs topicals -given overall improving clinical picture and pt's desire to stay away from immunosuppression, joint decision to treat with longer course of triam -Start Rx Triamcinolone 0.1% cream: Apply topically to the effected areas of the body twice daily for 3 weeks. Take 1 week off and repeat as needed. -Start sensitive skin care routine. Handout given to patient. -Consider punch biopsy at next visit if still persistent -May consider strep titer in the future as well Figure 1-5 Photo(s) taken and charted with patient's verbal consent. Other: ??? OTC skin products discussed RTC: 4-6 weeks for dermatitis follow up []Note routed to gas station manager []Recall placed in scheduling system [x]Appointment scheduled at checkout Scribe attestation: Amrit Chanel MA has performed the documentation for this encounter in the presence of and acting as a scribe for Carla Montoya MD. I performed the above scribed service and agree with the accuracy of the documentation in this encounter. Reviewed and signed by: Carla Montoya MD Dermatology [facility] Patient seen and evaluated with staff getter welder: Winston Maguire MD Dermatology [facility] * Winston Maguire MD - 01/29/2022 8:40 AM EST I directly supervised the Dermatology resident during this office visit. The resident presented thehistory and physical exam to me. I then saw and examined this patient with the resident. We reviewed the history and pertinent details and I confirmed the physical findings. I agree with the details of the history and physical exam as documented in the resident's note. WINSTON MAGUIRE MD Staff Physician documented in this encounter Plan of Treatment Not on file documented as of this encounter Visit Diagnoses Diagnosis Dermatitis Contact dermatitis and other eczema, due to unspecified cause documented in this encounter Care Teams Casting Finisher Relationship Specialty Start Date End Date Too Bella PA [address] [place] [address] PCP - General Internal Medicine 11/18/21 documented as of this encounter
--- OUTSIDE RECORDS SUMMARY | 2024-03-17 14:17 | XMS_ITS | Encounter Summary ---
Author Organization [facility] Address [address] [facility] [place] [address] Care Team Providers Care Automation Clerk Name Role Phone Marie Rose TYLER Primary Care Provid er Encounter Details Date Type Department Care Team (Late st Contact Info) Description 01/22/2010 Interpretation Only Radiology [address] [facility] [place] [id number] Unknown None Social History Tobacco Use Types Packs/Day Years Used Date Smoking Tobacco: Never Assessed Sex and Gender Information Value Date Recorded Sex Assigned at Not on file Gender Identity Not on file Sexual Orientation Not on file documented as of this encounter Plan of Treatment Not on file documented as of this encounter Procedures Procedure Name Priority Date/Time Associated Diagnosis Comments CT ABDOMEN AND PELVIS W CONTRAST Routine 01/22/2010 9:53 AM EST documented in this encounter Results * CT Abdomen & Pelvis w Contrast (01/22/2010 9:53 AM EST) Anatomical Region Laterality Modality Abdomen, Pelvis Computed Tomogra phy 01/22/2010 9:53 AM EST Narrative 01/22/2010 9:53 AM EST APD Historical Result Principal General Utility Worker: ??SANDRA ??HASMUKH CT ABDOMEN AND PELVIS WITH ORAL AND IV CONTRAST: Axial imaging through the abdomen and pelvis is obtained post oral and intravenous contrast. Study is performed for abdominal pain, rectal pain, and difficulty voiding. CT ABDOMEN: The liver, spleen, gallbladder, pancreas, both adrenal glands, and both kidneys are normal in appearance. ??There is no suggestion of lymphadenopathy. ??The aorta is normal in caliber. CT PELVIS: The appendix is visualized and is unremarkable in appearance. ??No bowel abnormality is seen. ?? The bladder is unremarkable. ??No free fluid. IMPRESSION: Normal CT abdomen and pelvis. ??No abnormality of the rectum is identified. Sandra Noe MD KG/ma [id number] CC: Procedure Note Unknown - 09/04/2018 APD Historical Result Principal General Utility Worker: SANDRA NOE CT ABDOMEN AND PELVIS WITH ORAL AND IV CONTRAST: Axial imaging through the abdomen and pelvis is obtained post oral andintravenous contrast. Study is performed for abdominal pain, rectal pain, and difficultyvoiding. CT ABDOMEN: The liver, spleen, gallbladder, pancreas, both adrenal glands, and bothkidneys are normal in appearance. There is no suggestion of lymphadenopathy. The aorta isnormal in caliber. CT PELVIS: The appendix is visualized and is unremarkable in appearance. No bowelabnormality is seen. The bladder is unremarkable. No free fluid. IMPRESSION: Normal CT abdomen and pelvis. No abnormality of the rectum isidentified. Sandra Noe MD KG/ma [id number] CC: Unknown IMG CT ORDERABLES documented in this encounter Visit Diagnoses Not on filedocumented in this encounter Care Teams Automation Clerk Relationship Specialty Start Date End Date Marie Rose, TYLER PCP - General Family Medicine 07/11/15 07/17/20 documented as of this encounter
[2024-03-17] MEDS: LORazepam 1 MG TAB PO (14:19)
[2024-03-17] MEDS: Magnesium Oxide 400 MG TAB 800 MG PO (14:49)
[2024-03-17 15:22] LABS: Troponin I 5 ng/L (<or=76)
== END 2024-03-17 16:16 | disposition home or self-care (01) ==
PROVIDERS: Emergency Provider Emergency Medicine; PCP Family Medicine
DX: R00.2 Palpitations (principal); E83.42 Hypomagnesemia; R00.0 Tachycardia, unspecified; Z87.891 Personal history of nicotine dependence
CPT/HCPCS: 36415; 80053; 83690; 93005; 99284; 83735; 84443; 84484; 85025; 93010

== ENCOUNTER 2024-06-25 16:08 | Outpatient (REF) | payer BC, SELFPAY ==
[2024-06-25 16:04] LABS: Hemoglobin A1C 5.4 % (<5.7)
[2024-06-25 16:06] LABS: Calculated LDL 117 mg/dL (<100); Cholesterol 205 mg/dL (<200); HDL Cholesterol 41 mg/dL (>or=40); Triglyceride 238 mg/dL (<150)
== END 2024-06-25 16:09 | disposition home or self-care (01) ==
LOC: NCHCN 16:08
PROVIDERS: PCP Physician Assistant; Visit Provider Physician Assistant
DX: Z13.220 Encounter for screening for lipoid disorders (principal); Z13.1 Encounter for screening for diabetes mellitus
CPT/HCPCS: 80061; 83036

== ENCOUNTER 2025-02-07 09:09 | Day surgery (SDC) | payer BC, SELFPAY ==
[2025-02-07 09:29] VITALS: BP 133/82; PULSE 63; RESP 18; TEMP 36.3; O2SAT 98
[2025-02-07] MEDS: Lactated Ringers 1,000 ML 80 ML IV (10:00)
--- NOTE | 2025-02-07 10:18 | W.ANESPRE ---
General Info Date of Service Date Performed: 02/07/25 Height: 6 ft 1 in Weight: 106.9 kg Body Mass Index (BMI): 31.1 Surgical Procedure: Operation Date: 02/07/25 10:35 Proposed Procedure Side Surgeon p Colonoscopy Yuki Delaney MD Meds Allergies and Home Medications Allergies Allergy/AdvReac Type Severity Reaction Status Date / Time No Known Allergies Allergy Verified 02/07/25 09:21 Home Medication ?Medication ?Instructions ?Recorded paroxetine HCl 10 mg tablet 10 mg PO DAILY 03/17/24 lorazepam 0.5 mg tablet 0.5 mg PO DAILY PRN 01/24/25 propranolol 20 mg tablet 20 mg PO TID 01/24/25 bisacodyl 5 mg tablet,delayed 5 mg PO ONCE #4 tabs 02/06/25 release polyethylene glycol 3350 17 17 g PO DAILY #238 grams 02/06/25 gram/dose oral powder Current Visit Medications: Current Medications Generic Name Dose Route Start Last Admin Trade Name Freq PRN Reason Stop Dose Admin Ringer's Solution 1,000 mls @ 80 mls/hr 02/07/25 06:00 02/07/25 10:00 IV 02/07/25 23:59 80 mls/hr INFUSION MORRIS Administration Sodium Chloride 0 ml 02/07/25 06:00 Normal Saline Flush 10 Ml Syr IV 02/07/25 23:59 PRN PRN Sodium Chloride 0 ml 02/07/25 06:00 Normal Saline 10 Ml Vial IJ 02/07/25 23:59 DIRECTED PRN Sterile Water 0 ml 02/07/25 06:00 Water,Injection,Sterile 10 Ml Vial IJ 02/07/25 23:59 DIRECTED PRN PFSH Active Problems Active Problems: Problem Status Onset Code Change in bowel habits Acute R19.4 Encounter for screening colonoscopy Acute Z12.11 Tobacco Smoking/Tobacco Use Status: Former Tobacco Use Alcohol Alcohol Intake: current Alcohol intake frequency: holidays/special occasions only Substance Use Substance use: Occasionally Substance use type: marijuana Details: home grown Vital Signs and Lab Results Vital Signs Most Recent Vital Signs in EMR: Most Recent Vital Signs Temp Pulse Resp BP Pulse Ox 36.3 C L 63 18 133/82 98 02/07/25 09:29 02/07/25 09:29 02/07/25 09:29 02/07/25 09:29 02/07/25 09:29 Imaging and Studies Imaging and Studies Study information below may be from another EMR and interpreted by another provider. Please see original notes in EMR for more complete details. EKG Summary: 03/17/24 Conclusion Sinus rhythm...normal P axis, V-rate 60- 99 Atrial premature complexes...SV complexes w/ short R-R intvls Nonspecific ST depression...ST <-0.10mV, any 2 leads Anesthesia Assessment and Plan Anesthesia History Personal History: No History of Anesthesia Complications Family History: No Family History of Anesthesia Complications Exercise Tolerance Exercise Tolerance: Metabolic Equivalents>4 Pertinent Negatives Pertinent Negatives: No Symptoms of GERD, No Major Cardiovascular Symptoms or Complaints and No Major Pulmonary Symptoms or Complaints Cardiac & Pulmonary Exam Cardiac Exam: Normal S1/S2 Heart Sounds Pulmonary Exam: Clear Bilateral Breath Sounds Implantable Cardiac Device Does patient have a Pacemaker or an ICD?: No Airway Exam Known Difficult Airway: No Mallampati Class: 2 Mouth Opening: Normal (> 3cm) Thyromental Distance: Greater than 3 cm Neck Range of Motion: Full ROM Neck Circumference: Normal Teeth Condition: Normal Dentition ASA Classification ASA Score: ASA 2 Emergency Case?: No NPO Status NPO Status: NPO Clears >2 hours, Solids >8 hours Anesthesia Plan Resuscitation Status: Full Code Anesthesia Technique: General Anesthesia Airway Planned: Natural Airway Monitors Used: Standard Monitors Preoperative Comments:: Palpitations with anxiety.
[2025-02-07 10:21] VITALS: BMI 31.1
--- NOTE | 2025-02-07 10:37 | W.PM.DSUDISC ---
Date of service: 02/07/25 Discharge Plan Disposition Patient Disposition: Home Condition: Stable Discharge Details Reason For Visit: Colonoscopy evaluation of irregular bowel habits Attending Provider: Yuki Delaney Primary Care Provider: Too Bella Home Meds and New Rx's Prescriptions: Continued lorazepam 0.5 mg tablet 0.5 mg PO DAILY PRN propranolol 20 mg tablet 20 mg PO TID paroxetine HCl 10 mg tablet 10 mg PO DAILY Discontinued bisacodyl 5 mg tablet,delayed release (DR/EC) 5 mg PO ONCE Qty: 4 0RF Rx Instructions: Pre colonoscopy bowel prep instructions polyethylene glycol 3350 17 gram/dose powder 17 g PO DAILY Qty: 238 0RF Rx Instructions: Per colonoscopy bowel prep instructions Discharge Instructions Additional Instructions: Change in bowel habits rectal bleeding Normal colonoscopy. Symptoms luckily are not due to colon or rectal disease or cancer. Consider diet and lifestyle changes and see PCP back for additional evaluation or recommendations if symptoms persist or are severe. Next screening colonoscopy will be due in 10 years. Stand Alone Forms: Anesthesia Discharge Inst., Colonoscopy Post Instructions, [facility] Cm (DSU), Portal Information Activity:: Activity as Tolerated Diet:: As Tolerated Discharge Orders Discharge Orders: Discharge Order (Routine); Ordered 02/07/25 Ordered By: Yuki Delaney DS: Diagnosis Discharge Diagnosis (1) Change in bowel habits: Status: Acute (2) Rectal bleeding: Status: Acute
--- NOTE | 2025-02-07 10:40 | W.COLOREPORT ---
Date of service: 02/07/25 Time of Service: 10:40 Colonoscopy Report Pre-op diagnosis general: change in bowel habits, rectal bleeding Post-op diagnosis procedure note: same Procedure: Colonoscopy Surgeon: Yuki Delaney Anesthesia Type: General:No Airway Estimated blood loss (mL): 0 Pathology: none sent Complications: None Prep: Miralax/Dulcolax (good/excellent) Procedure Description: Informed consent was obtained and the patient was taken to the procedure area. The patient was placed in left lateral decubitus position on the procedure table. Timeout was performed. Anesthesia was induced. A lubricated colonoscope was inserted through the anus and passed to the cecum. The cecum was identified by the ileocecal valve and the appendiceal orifice. The scope was then slowly withdrawn and the colonic and rectal mucosa examined. TI intubated and examined. It appears normal. There are no colon or rectal mass lesions, polyps, AVMs. There is no inflammatory change. No diverticulosis was seen. The scope was retroflexed in the anorectal junction examined. Uncomplicated internal hemorrhoids present. Assessment and plan: Change in bowel habits rectal bleeding Normal colonoscopy. Symptoms are not due to colorectal disease. Consider dietary factors, stomach and small bowel assessment if symptoms are severe or persistent. Next screening colonoscopy will be due in 10 years.
[2025-02-07 11:14] VITALS: BP 119/81; PULSE 76; RESP 14; TEMP 36.2; O2SAT 95
[2025-02-07 11:44] VITALS: BP 113/65; PULSE 58; RESP 14; TEMP 36.8; O2SAT 96
--- NOTE | 2025-02-07 12:08 | W.ANESPOSTOP ---
Postoperative Evaluation Date, Time and Location Date Performed: 02/07/25 Time Performed: 11:44 Patient Location: Day [facility] Unit Vital Signs Most Recent Imported Vital Signs: Most Recent Vital Signs Temp Pulse Resp BP Pulse Ox 36.8 C 58 L 14 113/65 96 02/07/25 11:44 02/07/25 11:44 02/07/25 11:44 02/07/25 11:44 02/07/25 11:44 Pain Score Most Recent Pain Score: Most Recent Pain Score Pain Level 0 02/07/25 11:44 Assessment Mental Status: Awake (Alert & Oriented to Patient Baseline) Airway and Respiratory Function: Patent airway with normal (patient baseline) respiratory exam Cardiovascular Function: Hemodynamically Stable Hydration Status: Adequately Hydrated Nausea & Vomiting: No Nausea or Vomiting Pain: Pt. Denies Any Pain Peripheral Nerve Block: Patient did not receive a nerve block
== END 2025-02-07 11:58 | disposition home or self-care (01) ==
PROVIDERS: PCP Physician Assistant; Visit Provider Surgery
PROC: 0DJD8ZZ Inspection of Lower Intestinal Tract, Via Natural or Artificial Opening Endoscopic (ICD-10-PCS; CPT 45378; principal; 2025-02-07 10:30)
DX: R19.4 Change in bowel habit (principal); K62.5 Hemorrhage of anus and rectum; Z80.0 Family history of malignant neoplasm of digestive organs
CPT/HCPCS: 45378; J2003; J2250; J2704